=== PATIENT | female | born 1985 | race Caucasian/White ===

== ENCOUNTER → 2019-03-01 | Outpatient (CLI) | payer OTHER ==
--- NOTE | 2019-03-01 15:12 | Diagnostic Imaging Report ---
INDICATION: Right hand injury with pain. TECHNIQUE: AP, oblique, and lateral views of the right hand were obtained. FINDINGS: There is a mildly displaced intra-articular avulsion fracture along the dorsal aspect of the fifth distal phalanx. There is mild dorsal displacement of the fracture fragment. No other fracture or malalignment is identified. IMPRESSION: Mildly displaced dorsal avulsion fracture involving the 5th distal phalanx adjacent to the distal interphalangeal joint. Dictated by: Dictated on workstation # [id number]
== END ==
LOC: RAD FS 14:44
PROVIDERS: ATTEND Nurse Practitioner
DX: S62.636A Displaced fracture of distal phalanx of right little finger, initial encounter for closed fracture (principal)
CPT/HCPCS: 73130

== ENCOUNTER 2019-03-06 05:41 | Outpatient (CLI) | payer OTHER ==
[~2019-03-06] VITALS: Ht 172.7 cm; Wt 131.8 kg
[2019-03-06] MEDS ORDERED: SERT50TA9 PO (13:59)
== END 2019-03-06 14:08 | disposition home or self-care (01) ==
LOC: PREOP 05:41
PROVIDERS: ATTEND Orthopaedic Surgery
DX: Z01.818 Encounter for other preprocedural examination (principal)

== ENCOUNTER 2019-03-08 07:31 | Day surgery (SDC) | payer OTHER ==
--- NOTE | 2019-03-03 12:36 | HISTORY AND PHYSICAL ---
DATE OF SERVICE: 03/08/2019 ADMISSION HISTORY AND PHYSICAL DATE OF ADMISSION: 03/08/2019. This will be for outpatient surgery on 03/08/2019 for right small finger percutaneous pin fixation. HISTORY OF PRESENT ILLNESS: The patient is a 34-year-old right hand dominant female, who has had her left small finger stepped on approximately a week ago. She was found to have an avulsion fracture of the distal phalanx of the small finger consistent with a bony mallet. Due to the large size of the fracture, it was recommended that the patient undergo operative fixation. REVIEW OF SYSTEMS: No chest pain, no shortness of breath and no dysuria. PAST MEDICAL HISTORY: Anxiety disorder and exercise induced asthma. PAST SURGICAL HISTORY: [place] tooth extraction. FAMILY HISTORY: Noncontributory. PRIMARY CARE PROVIDER: Dr. Vincent. MEDICATIONS: Sertraline. ALLERGIES: No known drug allergies. SOCIAL HISTORY: The patient denies alcohol and tobacco use. RADIOGRAPHS: Reveal a bony mallet fracture of the distal phalanx involving approximately 50% of the articular surface. PHYSICAL EXAMINATION: GENERAL: The patient is well developed, well-nourished, in no acute distress. HEENT: Normocephalic, atraumatic. Pupils are equal, round and reactive to light. Oropharynx is clear. NECK: Supple, no lymphadenopathy. LUNGS: Clear to auscultation bilaterally. HEART: Regular rate and rhythm. ABDOMEN: Soft, nontender and nondistended. EXTREMITIES: The right small finger demonstrates tenderness dorsally at her DIP joint. She has an extension lag. Sensation is intact distally. She has intact FDS and FDP function. IMPRESSION: Bony mallet avulsion fracture of the small finger distal phalanx. PLAN: Closed reduction and percutaneous pin fixation of the right small finger. The risks, benefits, options, ramifications and recovery were discussed at length with the patient. She understands and wishes to proceed. Job ID: [id number] DocumentID: [id number] Dictated Date: 03/03/2019 11:04:53 Roads Superintendent Date: 03/03/2019 11:37:53 Dictated By: NAZ FOSTER MD
[~2019-03-08] VITALS: Ht 172.7 cm; Wt 131.8 kg
[2019-03-08] VITALS (10 sets, daily range): BP systolic 109–143; BP diastolic 64–98
[~2019-03-08 07:31] MED LIST: HYDROcodone/APAP 5 MG/325 MG (LORTAB) TAB PO PRN; SERT50TA9 PO
[2019-03-08] MEDS ORDERED: LACTATED RINGERS 1,000 ML IV PRN (07:37)
[2019-03-08] MEDS ORDERED: ceFAZolin INJECTION 1,000 MG in WATER (STERILE) FOR INJECTION 10 ML IV ONE (07:45)
[2019-03-08] MEDS ORDERED: CATHETER FLUSH 10 ML SYR IV PRN (08:00)
[2019-03-08] MEDS ORDERED: MIDAZOLAM 2 MG/2 ML (VERSED) VIAL ONE (08:18)
[2019-03-08] MEDS ORDERED: fentaNYL INJECTION 100 MCG/2 ML AMP ONE (08:18)
[2019-03-08] MEDS ORDERED: LIDOCAINE PF 2% 5 ML (XYLOCAINE) VIAL ONE (08:18)
[2019-03-08] MEDS ORDERED: SEVOFLURANE (ULTANE) 15 ML INHAL SOLN ONE (08:18)
[2019-03-08] MEDS ORDERED: proPOfol 200 MG/20 ML (DIPRIVAN) VIAL IV ONE (08:18)
[2019-03-08] MEDS ORDERED: DEXAMETHASONE 10 MG/ML (DECADRON) 1 ML VIAL ONE (08:18)
[2019-03-08] MEDS ORDERED: ONDANSETRON 4 MG/2 ML (SDV) Z0FRAN ONE (08:18)
[2019-03-08] MEDS ORDERED: BUPIVACAINE 0.25% 30 ML (SENSORCAINE) VIAL ONE (08:30)
[2019-03-08] MEDS ORDERED: HYDROmorphone 2 MG/ML VIAL (DILAUDID) ONE ×2 (09:07→09:44)
--- NOTE | 2019-03-08 09:32 | Progress Note-Pre Operative ---
Pre-Operative Progress Note H&P Reviewed The H&P was reviewed, patient examined and no changes noted. Date Seen by Provider: Mar 08, 2019 Time Seen by Provider: 08:34 Date H&P Reviewed: Mar 08, 2019 Time H&P Reviewed: 07:15 Pre-Operative Diagnosis: right small finger bony mallet finger NAZ FOSTER MD Mar 08, 2019 09:32 POS
--- NOTE | 2019-03-08 09:34 | Progress Note-Post Operative ---
Post-Operative Progess Note Surgeon (s)/Rail Switchman (s) Surgeon NAZ FOSTER MD Rail Switchman: Jignesh infante Pre-Operative Diagnosis right small finger bony mallet finger Post-Operative Diagnosis right small finger bony mallet finger Procedure & Operative Findings Date of Procedure 03/08/19 Procedure Performed/Findings closed reduction and percutaneous pin fixation of the right small finger DIP joint Anesthesia Type GETA Estimated Blood Loss Estimated blood loss (mL): minimal Specimens/Packing Specimens Removed none Packing: none NAZ FOSTER MD Mar 08, 2019 09:34 POS
[2019-03-08] MEDS ORDERED: HYDROmorphone 2 MG/ML VIAL (DILAUDID) IV ONE (09:45)
[2019-03-08] MEDS ORDERED: ONDANSETRON 4 MG/2 ML (SDV) Z0FRAN IVP PRN (09:45)
--- NOTE | 2019-03-08 10:46 | Diagnostic Imaging Report ---
Fluoroscopy. Indication: Finger pain. Fluoroscopic assistance was provided for Dr. Espinoza. 19.2 seconds of fluoroscopy time was utilized. AP and lateral spot films of the 5th digit were obtained. The right hand exam performed 03/01/2019 did note a mildly displaced avulsion fracture involving the dorsal aspect of the base of the distal phalanx of the 5th digit. On this exam there is now an orthopedic fixation wire longitudinally traversing the distal phalanx and the middle phalanx. Impression: Fluoroscopic assistance was provided for Dr. Espinoza. Dictated by: Dictated on workstation # [id number]
[2019-03-08] MEDS ORDERED: HYDR-3875 PO (10:53)
--- NOTE | 2019-03-08 15:07 | OPERATIVE REPORT ---
DATE OF SERVICE: 03/08/2019 PREOPERATIVE DIAGNOSIS: Right small finger bony mallet finger. POSTOPERATIVE DIAGNOSIS: Right small finger bony mallet finger. PROCEDURES: Closed reduction and percutaneous pin fixation of the right small finger DIP joint. SURGEON: Sudeep Foster MD ELECTROTHERAPIST: Jignesh Ramirez, who assisted throughout the procedure. ANESTHESIA: General endotracheal by Jose Wood CRNA. TOURNIQUET TIME: Not applicable. ESTIMATED BLOOD LOSS: Minimal. DRAINS: None. COMPLICATIONS: None. POSTOPERATIVE PLAN: Pin fixation for four to six weeks. The patient was transferred to the recovery room awake and in stable condition. STATEMENT OF MEDICAL NECESSITY: The patient is a 34-year-old right hand dominant female, who sustained an injury to her right small finger when she was unintentionally stepped on. She was found to have a bony mallet finger with weakness with extension of the DIP joint. This involved approximately 50% of the articular surface. Therefore, it was recommended that the patient undergo operative fixation. DESCRIPTION OF PROCEDURE: After risks and benefits of procedure were discussed and questions were answered, an informed consent was signed and placed on the chart. The operative site was confirmed in the preoperative holding area initialed by the surgeon. The patient was then transferred to the operating room and after adequate levels of general endotracheal anesthetic were obtained, a timeout was called, confirming the operative site. The right upper extremity was prepped and draped in the usual sterile fashion. Under fluoroscopic visualization, a single 0.45 K-wire was passed from the distal aspect of the distal phalanx longitudinally across the DIP joint with the DIP joint held in hyperextension. This was felt to be in excellent position. The pin was felt to be in excellent position on the AP, lateral and oblique radiographs. The joint was stable to stress. The pin was cut and the ball was applied. The patient was transferred to the recovery room awake and in stable condition. Job ID: [id number] DocumentID: [id number] Dictated Date: 03/08/2019 09:33:01 Trauma Director Date: 03/08/2019 15:06:29 Dictated By: SUDEEP FOSTER MD
--- NOTE | 2019-03-09 07:04 | Anesthesia-General Post-Op ---
General Patient Condition Mental Status/LOC: Same as Preop Cardiovascular: Satisfactory Nausea/Vomiting: Absent Respiratory: Satisfactory Pain: Controlled Complications: Absent Post Op Complications Complications None Follow Up Care/Instructions Patient Instructions None needed. Anesthesia/Patient Condition Patient Condition Patient is doing well, no complaints, stable vital signs, no apparent adverse anesthesia problems. No complications reported per nursing. D[facility] [place] [facility] [place]: Yes SHANNAN CORTEZ CRNA Mar 09, 2019 07:04 POS
== END 2019-03-08 11:40 | disposition home or self-care (01) ==
LOC: SDC 07:31
PROVIDERS: ATTEND Orthopaedic Surgery
DX: M20.011 Mallet finger of right finger(s) (principal); J45.998 Other asthma; E66.01 Morbid (severe) obesity due to excess calories; F41.9 Anxiety disorder, unspecified; F32.9 Major depressive disorder, single episode, unspecified; Z68.41 Body mass index [BMI] 40.0-44.9, adult
CPT/HCPCS: 84703; 87081

== ENCOUNTER → 2021-04-11 | Outpatient (CLI) | payer OTHER ==
[~2021-04-11] MED LIST changes: +HYDR-3875 PO; -HYDROcodone/APAP 5 MG/325 MG (LORTAB) TAB PO PRN; +SERT-413 PO; -SERT50TA9 PO
[2021-04-11 13:26] LABS: ALBUMIN 4.1 GM/DL (3.2-4.5); BILIRUBIN,TOTAL 0.7 MG/DL (0.1-1.0); CALCIUM 8.9 MG/DL (8.5-10.1); CREATININE SERUM 0.52 MG/DL (0.60-1.30); TOTAL PROTEIN 6.8 GM/DL (6.4-8.2)
== END ==
LOC: LAB FS 12:31
PROVIDERS: ATTEND Family Medicine
DX: Z00.00 Encounter for general adult medical examination without abnormal findings (principal)
CPT/HCPCS: 36415; 80053; 80061; 84443